=== PATIENT | female | born 1990 | race Hispanic/Latino ===

== ENCOUNTER 2019-06-08 12:12 | Day surgery (SDC) | payer BC, OTHER ==
[2019-06-08 12:48] VITALS: BMI 38.7
[2019-06-08] MEDS ORDERED: hydrALAZINE 20 MG/ML VIAL SLOW IVP PRN (13:27)
[2019-06-08 13:30] VITALS: BP 132/83; TEMP 99.7
--- NOTE | 2019-06-08 13:40 | PDOC.LDHP ---
Labor and Delivery H&P Chief complaint: other (Pelvic pressure at 37 weeks 2 days) HPI: Patient of Dr haney Here for pelvic pressure, no VB, no LOF, good FM 28 yo EDC 06/27/19 at 37 weeks 2 days. Good FM, no LOF. Cervix was 4cm last week in office. Has A1DM and sugar was 80s this morning. review of Systems: complete ROS completed and negative as per HPI Current gestational age (weeks): 37 (2 days) Dating criteria: last menstrual period Grav: 2 Para: 1 OB History Details: in 2013 Current complications: gestational diabetes (Diet controlled) Abnormal US findings: No Current medications: pre-asim vitamins Previous surgical history: none Allergies/Adverse Reactions: Allergies Allergy/AdvReac Type Severity Reaction Status Date / Time No Known Drug Allergies Allergy Verified 06/12/13 21:42 - Physical Exam Vital signs reviewed and normal: yes (134//72 afebrile pulse 72) General: NAD Heart: RRR Lungs: CTAB Abdomen: gravid Extremeties: no edema FHT: category 1 [place] contractions every: few/rare - Vaginal Exam cm dilated: 4 Effacement: 50% Station: -2 - Assessment Early term presssure, gestational DM...not in active labor - Plan Plan: other (OK for outpatient care, has follow up in 2 days. I have seen and evaluated the patient at bedside)
[2019-06-08] MEDS ORDERED: FLU VACC QS2019-20(6MOS UP)/PF 60 MCG/0.5 ML SYRINGE IM ONE (13:45)
== END 2019-06-08 13:46 | disposition home health service (06) ==
LOC: L&D/OP 12:12
PROVIDERS: ATTEND Student in an Organized Health Care Education/Training Program
DX: O99.89 Other specified diseases and conditions complicating pregnancy, childbirth and the puerperium (principal); R10.2 Pelvic and perineal pain; O24.410 Gestational diabetes mellitus in pregnancy, diet controlled; Z3A.37 37 weeks gestation of pregnancy

== ENCOUNTER 2019-06-11 11:05 | Day surgery (SDC) | payer BC, OTHER ==
[2019-06-11 11:30] VITALS: BMI 38.7
[2019-06-11] MEDS ORDERED: hydrALAZINE 20 MG/ML VIAL SLOW IVP PRN (16:17)
--- NOTE | 2019-06-11 16:54 | PRG ---
DATE OF SERVICE: 06/11/2019 PRIMARY SPECIAL EDUCATION CURRICULUM SPECIALIST: Rylee Samuels MD. CHIEF COMPLAINT: Pelvic pressure. HISTORY OF PRESENT ILLNESS: The patient is a 28-year-old, G2, P1, female, with an intrauterine at 37 weeks and 5 days, presenting to Labor and Delivery, experiencing more pelvic pressure. The patient has had advanced cervical dilation for at least couple of weeks. She was 4 cm dilated last week in the office with Dr. Samuels and was 5 cm a few days ago here on evaluation. The patient denies any vaginal bleeding. She denies uterine contractions. She denies any fever, fall, trauma, headache, chest pain, shortness of breath, nausea, vomiting, diarrhea, or constipation. She denies any new rashes. She does have hip problems that she attributes to the . Denies muscle weakness. Denies again vaginal bleeding, leakage of fluid, or urinary urgency or frequency. PAST MEDICAL HISTORY: Gestational diabetes, diet controlled, and asthma, off medicine. PAST SURGICAL HISTORY: Negative. SOCIAL HISTORY: Denies drug, alcohol, or tobacco use. ALLERGIES: NO KNOWN DRUG ALLERGIES. MEDICATIONS: vitamins. LABORATORY DATA: OB labs; blood type is A positive. Antibody screen is negative. Hepatitis B surface antigen is nonreactive. HIV is nonreactive. She is rubella immune. Drug screen is positive. Her 1-hour Glucola is 172. 3-hour test showed abnormalities, 172, 174, 161, and 93. REVIEW OF SYSTEMS: Per HPI. PHYSICAL EXAMINATION: VITAL SIGNS: Blood pressure is 132/83, heart rate of 89, respiratory rate of 20, saturating 99% on room air, and temperature 99.7. GENERAL: She appears to be in no acute distress. She is alert, oriented, cooperative, and pleasant to interact with. HEAD: Normocephalic, atraumatic. LUNGS: Clear to auscultation bilaterally. HEART: Has regular rate and rhythm. ABDOMEN: Gravid, soft, and nontender. EXTREMITIES: Nontender. Nonedematous. CERVICAL: She is 5, 70, -1 station. Fetus has a baseline in the 140s with moderate long-term variability, positive 15 x 15 accelerations, no decelerations. She has tocometer, showing some irritability, but not felt by the patient. No regular contractions. Repeat exam 2-1/2 hours later is unchanged. ASSESSMENT AND PLAN: The patient is a 28-year-old, G2, P1, female with an intrauterine at 37 weeks and 5 days with pelvic pressure. No evidence of labor or leakage of fluid. The patient is being discharged home with term labor precautions. She lives close to the hospital and has been given strict precautions given her cervical exam. Fetus has a category 1 tracing and reactive NST. The patient has been counseled to follow up with her doctor, Dr. Samuels, as scheduled. Job ID: [id number]
== END 2019-06-11 15:20 | disposition home or self-care (01) ==
LOC: L&D/OP 11:05
PROVIDERS: ATTEND Student in an Organized Health Care Education/Training Program
DX: O99.89 Other specified diseases and conditions complicating pregnancy, childbirth and the puerperium (principal); R10.2 Pelvic and perineal pain; Z3A.37 37 weeks gestation of pregnancy
CPT/HCPCS: 99282

== ENCOUNTER 2019-06-20 23:52 | Day surgery (SDC) | payer BC, OTHER ==
[2019-06-21 00:20] VITALS: BP 150/93; TEMP 98.1; BMI 38.7
[2019-06-21 02:18] LABS: Bilirubin Negative (Negative); Blood, Urine Negative (Negative); Clarity Turbid (Clear); Glucose, Urine (Dipstick) Normal (Negative); Leukocyte 500 Leu/uL (Negative); Nitrite Negative (Negative); Protein, Urine (Dipstick) 30 mg/dL (Neg-Trace); Urobilinogen Normal mg/dL (Less than 2); WBC/HPF Greater than 50 HPF (0-3)
[2019-06-21 02:19] LABS: Bacteria/HPF 1+ HPF (None Seen)
--- NOTE | 2019-06-21 09:12 | PRG ---
DATE OF SERVICE: 06/21/2019 PRIMARY [employer] TUT[employer] TEACHERS: Rylee Samuels MD CHIEF COMPLAINT: Pelvic pressure. HISTORY OF PRESENT ILLNESS: The patient is a 28-year-old, G2, P1 female with an intrauterine at 39-1/7 weeks, presenting to Labor and Delivery with reports of just increased pelvic pressure and some cramping. The patient reports that she has been dilated about 5 cm for over a week now. She does not report any significant changes. She does report she has been feeling a little more cramping and this pressure with the baby just feeling lower and on the prompting of her mom came in for evaluation. She has been having some mucousy discharge, but no leakage of fluid. No vaginal bleeding. She denies any recent illness, fever, fall, headache, chest pain, shortness of breath, nausea, vomiting, diarrhea, constipation, hip problems, knee problems, or muscle weakness. Denies any vaginal bleeding or leakage of fluid, urinary urgency or frequency. PAST MEDICAL HISTORY: Gestational diabetes, diet controlled; and asthma, off medications. PAST SURGICAL HISTORY: Negative. SOCIAL HISTORY: Denies drug, alcohol or tobacco use. ALLERGIES: NO KNOWN DRUG ALLERGIES. MEDICATIONS: vitamins. OBSTETRIC LABS: Blood type B positive. Antibody screen is negative. Hepatitis B surface antigen nonreactive. HIV nonreactive. She is rubella immune. Drug screen was positive. She had 3 hour Glucola test 172, 174, 161, and 93. REVIEW OF SYSTEMS: Per HPI. PHYSICAL EXAMINATION: VITAL SIGNS: Blood pressure 150/93, repeat 132/83, and then 137/90. GENERAL: She appears to be in no acute distress. She is alert, oriented, cooperative, and pleasant to interact with. HEAD: Normocephalic, atraumatic. LUNGS: Clear to auscultation bilaterally. HEART: Regular rate and rhythm. ABDOMEN: Gravid, soft, nontender. EXTREMITIES: Nontender and nonedematous. Cervical exam she is 5, 80, and -2 station, which has been unchanged now for 10 days. Urinalysis has been collected and is pending. heart tracing shows the fetus with a baseline in the 140s with moderate long-term variability, positive 15 x 15 accelerations, no decelerations. Contractions are showing irritability and no real regular contraction pattern. ASSESSMENT AND PLAN: The patient is a 28-year-old, G2, P1 female with an intrauterine at 39-1/7th weeks, here for evaluation of labor. The patient really has no evidence of labor at this time, though she does have advanced cervical dilation. Concerning to me at the moment is 2 blood pressures in the mild range. The patient does not have any symptoms. However, we do have a urinalysis pending to see if there is any protein present. In reviewing her blood pressures and her record, blood pressures have been in the mid to upper 130s since the middle of her . Fetus has a category 1 tracing and reactive non stress test. The patient has some isolated elevated blood pressures that do not appear to out of the ordinary from her pressures through her . We have collected urine, awaiting for urinalysis for protein. If the patient does have protein spilling in her urine, the patient will likely stay overnight for blood pressure monitoring and possible induction of labor in the morning. If the protein remains negative and the patient does report she has a blood pressure cuff at home. She has been asked to check her blood pressures at least twice a day. If they do run above 140 on the top number and 90 on the bottom number, she has been asked to return. She does not have any more visits before the day of her induction, which is the 24 of June. The patient has been given term labor precautions. Job ID: [id number]
[2019-06-21] MEDS ORDERED: hydrALAZINE 20 MG/ML VIAL SLOW IVP PRN (19:51)
[2019-06-21] MEDS ORDERED: FLU VACC QS2019-20(6MOS UP)/PF 60 MCG/0.5 ML SYRINGE IM ONE (21:00)
== END 2019-06-21 02:28 | disposition home or self-care (01) ==
LOC: L&D/OP 23:52
PROVIDERS: ATTEND Student in an Organized Health Care Education/Training Program
DX: O99.89 Other specified diseases and conditions complicating pregnancy, childbirth and the puerperium (principal); R10.2 Pelvic and perineal pain; O24.410 Gestational diabetes mellitus in pregnancy, diet controlled; Z3A.39 39 weeks gestation of pregnancy
CPT/HCPCS: 81015; 99283

== ENCOUNTER 2019-06-23 06:52 | Inpatient (IN) | payer BC, OTHER ==
[2019-06-23] MEDS ORDERED: Bupivacaine 0.25% HCL 30 ML VIAL ONE (07:20)
[2019-06-23] MEDS: Lactated Ringer's 1,000 ML IV SCH ×2 (07:30→09:26)
[2019-06-23 07:33] VITALS: BMI 38.7
[2019-06-23] MEDS ORDERED: Penicillin G Potassium 5 MILL.UNITS in Sodium Chloride 0.9% 100 ML IVPB SCH (07:33)
[2019-06-23] MEDS ORDERED: HYDROcodone/Acetaminophen 5/325 mg Tablet PO PRN ×2 (07:33)
[2019-06-23] MEDS ORDERED: Butorphanol Tartrate 1 MG/ML VIAL SLOW IVP PRN (07:33)
[2019-06-23] MEDS ORDERED: Ibuprofen 800 MG TAB PO PRN (07:33)
[2019-06-23] MEDS ORDERED: hydrALAZINE 20 MG/ML VIAL SLOW IVP PRN ×2 (07:33→15:36)
[2019-06-23] MEDS ORDERED: NS w/ Oxytocin 10 units 500 ML IV SCH (07:33)
[2019-06-23] MEDS ORDERED: NS / Oxytocin 40 units/1000ml 1,000 ML IV PRN (07:33)
[2019-06-23] MEDS ORDERED: Ondansetron PF 4 MG/2 ML Vial IVP PRN ×2 (07:33→15:36)
[2019-06-23] MEDS ORDERED: Lactated Ringer's 1,000 ML IV SCH (07:33)
[2019-06-23] MEDS ORDERED: Promethazine HCl 25 MG/ML VIAL IM PRN (07:33)
[2019-06-23] MEDS ORDERED: Lidocaine 1% (PF) 30 ML VIAL SC PRN (07:33)
[2019-06-23] MEDS ORDERED: Penicillin G Potassium 5 MILL.UNITS VIAL ONE (07:34)
--- NOTE | 2019-06-23 07:39 | PDOC.LDHP ---
Labor and Delivery H&P Chief complaint: contractions, loss of fluid, abdominal pain HPI: term with ctx and rom clear Current gestational age (weeks): 39 Due date: 06/27/19 Grav: 2 Para: 1 OB History Details: x 1 Current complications: gestational diabetes ( diet control) Abnormal US findings: No Current medications: pre- vitamins Previous surgical history: none Allergies/Adverse Reactions: Allergies Allergy/AdvReac Type Severity Reaction Status Date / Time No Known Drug Allergies Allergy Verified 06/23/19 07:30 Social history: none - Physical Exam Vital signs reviewed and normal: yes General: NAD, resting, breathing through contractions Heart: other Lungs: nonlabored breathing Abdomen: gravid Extremeties: no edema FHT: category 1 - Vaginal Exam cm dilated: 6 Effacement: 75% Station: 0 - OB Labs Blood type: A RH: positive Antibody Screen: negative HIV: negative RPR: negative HEPSAg: negative 1 hour GCT: positive GBS: positive Rubella: immune - Assessment L&D Assessment: term patient in labor - Plan Plan: admit to L&D, labor augmentation if indicated, GBS antibiotic prophylaxis , anesthesia consult for pain management
[2019-06-23 07:48] LABS: Hemoglobin 13.1 g/dL (12.0-16.0); Mean Corpuscular HGB CONC 35.5 g/dL (32.0-36.0); Mean Corpuscular Hemoglobin 30.3 pg (27.0-31.0); Mean Corpuscular Volume 85.4 fL (78.0-98.0); Mean Platelet Volume 7.7 fL (7.4-10.4); Platelet Count 267 thou/uL (130-400); RBC Distribution Width 12.9 % (11.5-14.5); Red Blood Cell (RBC) Count 4.34 mill/uL (4.20-5.40); White Blood Cell (WBC) Count 8.3 thou/uL (4.8-10.8)
[2019-06-23] MEDS ORDERED: Fentanyl 4 mcg/Bup 0.1% Cadd 100 ML ONE (07:52)
[2019-06-23] MEDS ORDERED: Fentanyl 100 MCG/2 ML VIAL ONE (08:09)
[2019-06-23] MEDS ORDERED: NS / Oxytocin 40 units/1000ml 1,000 ML ONE (08:17)
[2019-06-23 08:32] LABS: HBSAg Index 0.16 S/CO (0-0.99); Hep B Surf Ag Non-Reactive S/CO (NonReactive); Syphilis Antibody Nonreactive (Nonreactive); Syphilis Antibody Index 0.09 S/CO (<1.00 Non-Reactive)
[2019-06-23] MEDS: Penicillin G 2.5 MILL.units 2.5 MILL.UNITS in Premix Bag 1 BAG IVPB SCH (11:25)
[2019-06-23] MEDS ORDERED: Milk Of Magnesia 30 ML UDCUP PO PRN (15:36)
[2019-06-23] MEDS ORDERED: NS / Oxytocin 40 units/1000ml 1,000 ML IV SCH (15:36)
[2019-06-23] MEDS ORDERED: Zolpidem Tartrate 5 MG TAB PO PRN (15:36)
[2019-06-23] MEDS ORDERED: Bisacodyl 10 MG SUPP PR PRN (15:36)
[2019-06-23] MEDS ORDERED: Adacel (T-DAP) 0.5 ML SYRINGE IM ONE (15:36)
[2019-06-23] MEDS ORDERED: Lanolin Ointment 7 GM TUBE TOP PRN (15:36)
[2019-06-23] MEDS: HYDROcodone/Acetaminophen 5/325 mg Tablet PO PRN ×2 (17:40→21:46)
[2019-06-23] MEDS: Ferrous Sulfate 325 MG TAB PO SCH (18:05)
[2019-06-23] MEDS: Ibuprofen 800 MG TAB PO SCH (21:46)
[2019-06-23] MEDS: Benzocaine-Menthol 82.5 ML CAN TOP PRN (21:47)
[2019-06-23] MEDS: Docusate Calcium (SURFAK) 240 MG CAP PO SCH (21:47)
[2019-06-24] MEDS: Penicillin G 2.5 MILL.units 2.5 MILL.UNITS in Premix Bag 1 BAG IVPB SCH (01:43)
[2019-06-24] MEDS: Ibuprofen 800 MG TAB PO SCH ×3 (05:31→21:53)
[2019-06-24 06:09] LABS: #Basophils 0.1 thou/uL (0.0-0.2); #Eosinphils 0.1 thou/uL (0.0-0.7); #Lymphocytes 2.7 thou/uL (1.20-3.40); #Monocytes 1.1 thou/uL (0.11-0.59); #Neutrophils 8.3 thou/uL (1.40-6.50); %Basophils 0.6 % (0.0-1.0); %Eosinophils 0.9 % (0.0-10.0); %Lymphocytes 22.2 % (21.0-51.0); %Neutrophils 67.3 % (42.0-75.0); Hemoglobin 11.6 g/dL (12.0-16.0); Mean Corpuscular HGB CONC 33.8 g/dL (32.0-36.0); Mean Corpuscular Hemoglobin 29.4 pg (27.0-31.0); Mean Platelet Volume 7.9 fL (7.4-10.4); Platelet Count 220 thou/uL (130-400); RBC Distribution Width 13.2 % (11.5-14.5); Red Blood Cell (RBC) Count 3.94 mill/uL (4.20-5.40); White Blood Cell (WBC) Count 12.3 thou/uL (4.8-10.8)
--- NOTE | 2019-06-24 07:25 | PRG ---
DATE OF SERVICE: 06/24/2019 SUBJECTIVE: The patient is day 1, status post term spontaneous vaginal delivery. She reports she is tolerating p.o., voiding on her own, ambulating well, having decreased lochia. OBJECTIVE: VITAL SIGNS: Blood pressure is 123/58, temperature 98.2, pulse of 85, respiratory rate is 16. GENERAL: She appears to be in no acute distress. She is alert and oriented, cooperative, and pleasant to interact with. HEENT: Head is normocephalic, fundus is firm at the umbilicus. EXTREMITIES: Nontender, nonedematous. LABORATORY DATA: hemoglobin is 11.6, hematocrit 34.3, and platelets of 220,000. ASSESSMENT AND PLAN: The patient is day 1, status post a term spontaneous vaginal delivery. Anticipate discharge tomorrow. I will be giving her primary OB, Dr. Samuels an update. Job ID: [id number]
[2019-06-24] MEDS: HYDROcodone/Acetaminophen 5/325 mg Tablet PO PRN ×3 (07:34→21:52)
--- NOTE | 2019-06-24 08:49 | DN ---
DATE OF PROCEDURE: 06/23/2019 The patient delivered a male infant on 06/23/2019 at 1418 hours by an uncomplicated term spontaneous vaginal delivery with a nuchal cord x1. Apgars were 8 and 9. Weight was 3703 g. Placenta delivered spontaneously. Followed by Pitocin infusion, there were no lacerations. Quantitative blood loss was 200 mL. The patient received 2 doses of antibiotics, being GBS positive. Dr. Domingo is the delivering physician. The patient and baby were stable in the room in the immediate . Job ID: [id number]
[2019-06-24] MEDS ORDERED: FLU VACC QS2019-20(6MOS UP)/PF 60 MCG/0.5 ML SYRINGE IM ONE (09:00)
[2019-06-24] MEDS: Prenatal Vitamin 1 TAB PO SCH (09:00)
[2019-06-24] MEDS: Docusate Calcium (SURFAK) 240 MG CAP PO SCH ×2 (09:01→21:54)
[2019-06-24] MEDS: Ferrous Sulfate 325 MG TAB PO SCH ×2 (09:09→16:55)
[2019-06-24] MEDS ORDERED: Preparation H Ointment 57 gram tube TOP PRN (20:59)
[2019-06-24] MEDS: Benzocaine-Menthol 82.5 ML CAN TOP PRN (21:54)
[2019-06-25] MEDS: Ibuprofen 800 MG TAB PO SCH ×2 (07:15→15:50)
[2019-06-25] MEDS: Ferrous Sulfate 325 MG TAB PO SCH (08:17)
[2019-06-25 08:28] VITALS: BP 133/68; TEMP 98
[2019-06-25] MEDS: Docusate Calcium (SURFAK) 240 MG CAP PO SCH (08:59)
[2019-06-25] MEDS: Prenatal Vitamin 1 TAB PO SCH (08:59)
[2019-06-25] MEDS: HYDROcodone/Acetaminophen 5/325 mg Tablet PO PRN (16:02)
== END 2019-06-25 17:15 | disposition home or self-care (01) | DRG 807 ==
LOC: L&D/OP 06:52 → L&D 14:40 → 3SE 20:16
PROVIDERS: ADMIT Obstetrics & Gynecology; ATTEND Student in an Organized Health Care Education/Training Program
PROC: 10E0XZZ Delivery of Products of Conception, External Approach (ICD-10-PCS; principal; 2019-06-23)
DX: O24.420 Gestational diabetes mellitus in childbirth, diet controlled (principal); Z37.0 Single live birth; Z3A.39 39 weeks gestation of pregnancy; O99.824 Streptococcus B carrier state complicating childbirth
CPT/HCPCS: 36415; 51702; 81015; 85025; 85027; 86780; 86850; 86900; 86901; 87340; 99283; 99285; J2540; J3010; S0020

== ENCOUNTER 2021-05-25 15:32 | Inpatient (IN) | payer BC ==
[2021-05-25 16:18] LABS: #Basophils 0.1 thou/uL (0.0-0.2); #Eosinphils 0.2 thou/uL (0.0-0.7); #Lymphocytes 1.8 thou/uL (1.20-3.40); #Monocytes 0.6 thou/uL (0.11-0.59); #Neutrophils 3.9 thou/uL (1.40-6.50); %Basophils 1.5 % (0.0-1.0); %Eosinophils 2.6 % (0.0-10.0); %Monocytes 8.5 % (0.0-10.0); %Neutrophils 59.3 % (42.0-75.0); Hemoglobin 11.3 g/dL (12.0-16.0); Mean Corpuscular HGB CONC 31.7 g/dL (32.0-36.0); Mean Corpuscular Hemoglobin 25.3 pg (27.0-31.0); Mean Corpuscular Volume 79.8 fL (78.0-98.0); Mean Platelet Volume 6.7 fL (7.4-10.4); Platelet Count 427 thou/uL (130-400); RBC Distribution Width 15.1 % (11.5-14.5); Red Blood Cell (RBC) Count 4.46 mill/uL (4.20-5.40); White Blood Cell (WBC) Count 6.6 thou/uL (4.8-10.8)
[2021-05-25 16:39] LABS: ALT (SGPT) 670 U/L (8-55); AST (SGOT) 251 U/L (5-34); Albumin 4.2 g/dL (3.5-5.0); Alkaline Phosphatase 283 U/L (40-110); Anion Gap 12 mmol/L (10-20); BUN (Urea Nitrogen) 6 mg/dL (7.0-18.7); Bilirubin, Total 3.5 mg/dL (0.2-1.2); Calc. Creatinine Clearance 0 mL/min (70-130); Calcium 9.3 mg/dL (7.8-10.44); Carbon Dioxide 26 mmol/L (22-29); Chloride 102 mmol/L (98-107); Globulin 3.4 g/dL (2.4-3.5); Glucose 109 mg/dL (70-105); Potassium 3.5 mmol/L (3.5-5.1); Protein, Total 7.6 g/dL (6.0-8.3); Sodium 136 mmol/L (136-145)
[2021-05-25 16:48] LABS: Bacteria/HPF None Seen HPF (None Seen); Bilirubin 2+ (Negative); Blood, Urine Negative (Negative); Clarity Turbid (Clear); Glucose, Urine (Dipstick) Normal (Negative); Ketone, Urine 20 mg/dL (Negative); Leukocyte 25 Leu/uL (Negative); Nitrite Negative (Negative); Protein, Urine (Dipstick) 30 mg/dL (Neg-Trace); RBC/HPF 0-3 HPF (0-3); Specific Gravity, Urine 1.028 (1.002-1.036)
[2021-05-25] MEDS ORDERED: Ondansetron PF 4 MG/2 ML Vial ONE (16:52)
[2021-05-25] MEDS ORDERED: Lidocaine Viscous Sol 2% 15 ml UD Cup ONE (16:53)
[2021-05-25] MEDS ORDERED: Mag-Al 1200 mg/1200 mg/30 ML UDCUP ONE (16:53)
[2021-05-25 17:00] LABS: BHCG - Serum Negative (NEGATIVE); Pregs Control Background? CLEAR/WHITE (CLR/WHITE); Pregs Control Bar Appear? YES (CONTROL BAR)
[2021-05-25] MEDS ORDERED: Dextrose 50% Abboject 50 ML SYRINGE SLOW IVP PRN (18:31)
[2021-05-25] MEDS ORDERED: Dextrose 5% in Water 1,000 ML IV PRN (18:31)
[2021-05-25] MEDS ORDERED: Ketorolac Tromethamine 30 MG/ML VIAL IVP PRN (18:35)
[2021-05-25] MEDS ORDERED: traMADol HCl 50 MG TAB PO PRN (18:36)
[2021-05-25] MEDS ORDERED: Piperacillin/Tazobactam 3.375 GM in Sodium Chloride 0.9% 100 ML IVPB SCH ×2 (18:45→19:00)
[2021-05-25 19:13] LABS: SARS-CoV-2 NAA Rapid Test DETECTED (NotDetected)
[2021-05-25] MEDS ORDERED: Morphine 4 MG/ML VIAL ONE (19:30)
[2021-05-25] MEDS: Sodium Chloride 0.9% 1,000 ML IV SCH (22:00)
[2021-05-25 23:11] VITALS: BMI 33.8
[2021-05-26] MEDS: Famotidine/PF 20 mg/2ml Vial SLOW IVP SCH ×3 (00:22→20:41)
[2021-05-26] MEDS: Ondansetron PF 4 MG/2 ML Vial IVP PRN (00:30)
[2021-05-26] MEDS ORDERED: Piperacillin/Tazobactam 3.375 GM in Sodium Chloride 0.9% 100 ML IVPB SCH ×2 (01:00)
[2021-05-26] MEDS: Sodium Chloride 0.9% 1,000 ML IV SCH ×2 (01:10→13:10)
[2021-05-26] MEDS: Piperacillin/Tazobactam 3.375 GM in Sodium Chloride 0.9% 100 ML IVPB SCH ×3 (05:00→20:42)
[2021-05-26] MEDS ORDERED: Bupivacaine 0.25% HCL 30 ML VIAL ONE (07:14)
[2021-05-26] MEDS ORDERED: Iothalamate Meglumine 60% 50 ML VIAL FS ONE ×2 (07:14→10:04)
[2021-05-26] MEDS ORDERED: Lidocaine 1% w/Epinephrine 1:100K 20 ML VIAL ONE (07:14)
[2021-05-26 07:26] LABS: #Eosinphils 0.2 thou/uL (0.0-0.7); #Lymphocytes 1.9 thou/uL (1.20-3.40); #Monocytes 0.6 thou/uL (0.11-0.59); #Neutrophils 3.2 thou/uL (1.40-6.50); %Basophils 0.8 % (0.0-1.0); %Eosinophils 3.3 % (0.0-10.0); %Lymphocytes 31.2 % (21.0-51.0); %Monocytes 10.6 % (0.0-10.0); %Neutrophils 54.1 % (42.0-75.0); Hemoglobin 10.8 g/dL (12.0-16.0); Mean Corpuscular HGB CONC 32.3 g/dL (32.0-36.0); Mean Corpuscular Hemoglobin 25.9 pg (27.0-31.0); Platelet Count 386 thou/uL (130-400); RBC Distribution Width 15.6 % (11.5-14.5); Red Blood Cell (RBC) Count 4.19 mill/uL (4.20-5.40)
[2021-05-26] MEDS ORDERED: Fentanyl 100 MCG/2 ML VIAL ONE ×2 (07:40→11:43)
[2021-05-26] MEDS ORDERED: Midazolam HCl 2 mg/2 ml Vial ONE (07:41)
[2021-05-26 07:46] LABS: ALT (SGPT) 589 U/L (8-55); AST (SGOT) 191 U/L (5-34); Albumin 3.7 g/dL (3.5-5.0); Alkaline Phosphatase 255 U/L (40-110); Anion Gap 11 mmol/L (10-20); BUN (Urea Nitrogen) 4 mg/dL (7.0-18.7); Bilirubin, Total 3.1 mg/dL (0.2-1.2); Calc. Creatinine Clearance 149 mL/min (70-130); Carbon Dioxide 24 mmol/L (22-29); Chloride 105 mmol/L (98-107); Globulin 2.8 g/dL (2.4-3.5); Glucose 94 mg/dL (70-105); Potassium 3.9 mmol/L (3.5-5.1); Protein, Total 6.5 g/dL (6.0-8.3); Sodium 136 mmol/L (136-145)
[2021-05-26] MEDS ORDERED: Lidocaine 1% PF 5 ML VIAL ONE (08:45)
[2021-05-26] MEDS ORDERED: Ketorolac Tromethamine 30 MG/ML VIAL ONE (08:45)
[2021-05-26] MEDS ORDERED: Ondansetron PF 4 MG/2 ML Vial ONE ×2 (08:45→11:43)
[2021-05-26] MEDS ORDERED: Glycopyrrolate 0.2 MG/ML 5 ML SYRINGE ONE (08:45)
[2021-05-26] MEDS ORDERED: Dexamethasone 20 MG/5 ML VIAL ONE (08:45)
[2021-05-26] MEDS ORDERED: PROPOFOL 200 MG/20 ML VIAL ONE (08:45)
[2021-05-26] MEDS ORDERED: Rocuronium Bromide 10 MG/ML (10ML VIAL) ONE (08:45)
[2021-05-26] MEDS ORDERED: Indomethacin 50 MG SUPP ONE (10:49)
[2021-05-26] MEDS ORDERED: Meperidine HCl/PF 25 MG/ML VIAL SLOW IVP PRN (11:58)
[2021-05-26] MEDS ORDERED: Ondansetron HCl/PF 4 MG/2 ML Vial IVP PRN (11:58)
[2021-05-26] MEDS ORDERED: Promethazine HCl 25 MG/ML VIAL IVPB PRN (11:58)
[2021-05-26] MEDS ORDERED: Promethazine HCl 25 MG/ML VIAL IM PRN (11:58)
[2021-05-26] MEDS: Ketorolac Tromethamine 30 MG/ML VIAL IVP PRN ×2 (14:19→20:42)
[2021-05-26] MEDS: traMADol HCl 50 MG TAB PO PRN (15:02)
[2021-05-26] MEDS: Acetaminophen 325 MG TAB PO PRN (18:29)
[2021-05-27] MEDS: Sodium Chloride 0.9% 1,000 ML IV SCH ×2 (01:19→14:11)
[2021-05-27] MEDS: traMADol HCl 50 MG TAB PO PRN ×2 (01:40→08:35)
[2021-05-27] MEDS: Acetaminophen 325 MG TAB PO PRN ×2 (01:40→08:36)
[2021-05-27] MEDS: Ondansetron PF 4 MG/2 ML Vial IVP PRN (01:45)
[2021-05-27] MEDS: Ketorolac Tromethamine 30 MG/ML VIAL IVP PRN (03:56)
[2021-05-27] MEDS: Piperacillin/Tazobactam 3.375 GM in Sodium Chloride 0.9% 100 ML IVPB SCH ×2 (04:54→14:11)
[2021-05-27 06:36] LABS: #Eosinphils 0.1 thou/uL (0.0-0.7); #Lymphocytes 1.7 thou/uL (1.20-3.40); #Monocytes 0.8 thou/uL (0.11-0.59); #Neutrophils 5.4 thou/uL (1.40-6.50); %Basophils 0.3 % (0.0-1.0); %Monocytes 10.1 % (0.0-10.0); %Neutrophils 67.6 % (42.0-75.0); Hemoglobin 10.2 g/dL (12.0-16.0); Mean Corpuscular HGB CONC 31.8 g/dL (32.0-36.0); Mean Corpuscular Hemoglobin 25.7 pg (27.0-31.0); Mean Corpuscular Volume 80.7 fL (78.0-98.0); Mean Platelet Volume 7.1 fL (7.4-10.4); Platelet Count 362 thou/uL (130-400); RBC Distribution Width 15.8 % (11.5-14.5); Red Blood Cell (RBC) Count 3.96 mill/uL (4.20-5.40); White Blood Cell (WBC) Count 7.9 thou/uL (4.8-10.8)
[2021-05-27 07:01] LABS: ALT (SGPT) 530 U/L (8-55); AST (SGOT) 190 U/L (5-34); Albumin 3.5 g/dL (3.5-5.0); Alkaline Phosphatase 229 U/L (40-110); Anion Gap 11 mmol/L (10-20); BUN (Urea Nitrogen) 6 mg/dL (7.0-18.7); Bilirubin, Total 2.6 mg/dL (0.2-1.2); Calc. Creatinine Clearance 153 mL/min (70-130); Calcium 8.5 mg/dL (7.8-10.44); Carbon Dioxide 24 mmol/L (22-29); Chloride 105 mmol/L (98-107); Globulin 2.8 g/dL (2.4-3.5); Glucose 106 mg/dL (70-105); Lipase 181 U/L (8-78); Potassium 3.7 mmol/L (3.5-5.1); Protein, Total 6.3 g/dL (6.0-8.3); Sodium 136 mmol/L (136-145)
[2021-05-27] MEDS: Potassium Chloride 10 MEQ in Premix Bag 1 BAG IVPB SCH ×3 (08:37→14:11)
[2021-05-27] MEDS: Famotidine/PF 20 mg/2ml Vial SLOW IVP SCH (08:37)
[2021-05-27 12:06] VITALS: BP 123/84; TEMP 97.5
== END 2021-05-27 14:02 | disposition home or self-care (01) | DRG 417 ==
LOC: ERS 15:32 → T4-B 17:40
PROVIDERS: ADMIT Surgery; ATTEND Surgery
PROC: 8E0ZXY6 Isolation (ICD-10-PCS; 2021-05-25)
PROC: 0FT44ZZ Resection of Gallbladder, Percutaneous Endoscopic Approach (ICD-10-PCS; principal; 2021-05-26)
PROC: BF101ZZ Fluoroscopy of Bile Ducts using Low Osmolar Contrast (ICD-10-PCS; 2021-05-26)
PROC: 0F798ZZ Dilation of Common Bile Duct, Via Natural or Artificial Opening Endoscopic (ICD-10-PCS; 2021-05-26)
DX: K80.42 Calculus of bile duct with acute cholecystitis without obstruction (principal); U07.1 COVID-19
CPT/HCPCS: 36415; 47532; 74330; 76700; 80053; 81003; 81015; 83690; 84703; 85025; 93005; 96374; 96375; J1100; J1610; J1885; J2250; J2270; J2405; J2543; J2704; J3010; J3480; J3490; J7050; Q9961-U8; S0020; S0028; U0002